=== PATIENT | female | born 1990 | race Caucasian/White ===

== ENCOUNTER → 2017-05-22 | Outpatient (CLI) | payer BC ==
[~2017-05-22] MED LIST: IBU600 MG PO; OMEGA-3 FISH1000 MG PO; PERCOCET 325 MG1 TA2 PO; PRENATAL FORMU1 EAC3 PO; ZANTAC 150MG T150 MG PO
== END ==
LOC: COL.RAD 12:30
DX: R22.1 Localized swelling, mass and lump, neck (principal)

== ENCOUNTER → 2017-06-05 | Outpatient (CLI) | payer BC | LOC: COL.RAD 08:13 | DX: R22.1 Localized swelling, mass and lump, neck (principal) | CPT/HCPCS: A9585 ==

== ENCOUNTER 2018-06-03 03:30 | Emergency (ER) | payer BC ==
[~2018-06-03] VITALS: Ht 160 cm; Wt 57.7 kg
[2018-06-03 03:32] VITALS: TEMP 98.5
[2018-06-03] MEDS ORDERED: ZOLOFT 100MG100 MG PO (03:37)
[2018-06-03] MEDS ORDERED: VITAMIN D 50,1.25 MG PO (03:38)
[2018-06-03 03:47] LABS: BASO # 0.1 (0.0-0.2); EOS # 0.1 (0.0-0.7); EOS % 1.9 % (0-4.0); GRAN # 4.2 (1.4-6.5); GRAN % 67.1 % (42.2-75.2); HEMATOCRIT 41.3 % (37.0-47.0); HEMOGLOBIN 14.1 g/dl (12.5-16.0); LYMPH # 1.4 (1.2-3.4); LYMPH % 22.7 % (20.0-51.0); MEAN CELL VOLUME 90 fl (80.0-100.0); MEAN CORPUSCULAR HEMOGLOBIN 31 pg (27.0-31.0); MEAN CORPUSCULAR HGB CONC 34 g/dl (33.0-37.0); MEAN PLATELET VOLUME 10.9 fl (7.4-10.4); MONO # 0.5 (0.1-0.6); MONO % 7.1 % (1.7-9.3); PLATELET COUNT 190 K/mm3 (130-400); RED BLOOD COUNT 4.58 M/mm3 (4.10-5.30); REDCELL DISTRIBUTION WIDTH-CV 11.9 % (11.5-14.5)
[2018-06-03 03:57] LABS: ALBUMIN 4.4 gm/dL (3.5-5.0); BILIRUBIN,TOTAL 0.4 mg/dL (0.0-1.0); CALCIUM 9.1 mg/dL (8.4-10.2); CREATININE, serum 0.9 mg/dL (0.52-1.25); POTASSIUM 4.1 mmol/L (3.4-5.0); TOTAL PROTEIN 7.3 gm/dL (6.4-8.2)
[2018-06-03 04:14] LABS: PROLACTIN 14.5 ng/mL (3.0-18.6)
[2018-06-03] MEDS ORDERED: KEPPRA 500MG500 MG PO (04:53)
[2018-06-03 05:42] LABS: COLLECTION METHOD CLEAN CATCH
[2018-06-03 05:48] LABS: MUCOUS Present /lpf; PH 6 (5-8); SQUAMOUS EPITHELIAL 0-2 /hpf; URINE APPEARANCE Clear; URINE BACTERIA None Seen /hpf; URINE BILIRUBIN Negative (NEGATIVE); URINE BLOOD Negative (NEGATIVE); URINE COLOR Yellow; URINE GLUCOSE Negative (NEGATIVE); URINE KETONE Negative (NEGATIVE); URINE LEUKOCYTE ESTERASE Negative (NEGATIVE); URINE NITRATE Negative (NEGATIVE); URINE PROTEIN(semi-quant) Negative (NEGATIVE); URINE RBC 0-2 /hpf; URINE UROBILINOGEN Negative (NEGATIVE)
[2018-06-03 05:56] LABS: TRICYCLIC ANTIDEPRESS URINE NEGATIVE
[2018-06-03 06:10] VITALS: BP 103/63; PULSE 66
== END 2018-06-03 06:15 | disposition home or self-care (01) ==
LOC: COL.ER 03:30
PROVIDERS: Emergency Medicine
DX: R56.9 Unspecified convulsions (principal)
CPT/HCPCS: J7030

== ENCOUNTER 2019-12-04 11:17 | Emergency (ER) | payer BC ==
[~2019-12-04] VITALS: Ht 162.6 cm; Wt 59.1 kg
[~2019-12-04 11:17] MED LIST changes: +KEPPRA 500MG500 MG PO; +VITAMIN D 50,1.25 MG PO; +ZOLOFT 100MG100 MG PO
[2019-12-04 11:21] VITALS: BP 120/58; TEMP 99
[2019-12-04 12:36] LABS: BASO # 0.1 (0.0-0.2); BASO % 0.5 % (0.0-2.0); EOS % 0.1 % (0-4.0); GRAN % 81.5 % (42.2-75.2); HEMATOCRIT 42.6 % (37.0-47.0); HEMOGLOBIN 14.6 g/dl (12.5-16.0); LYMPH # 1.3 (1.2-3.4); MEAN CELL VOLUME 91 fl (80.0-100.0); MEAN CORPUSCULAR HEMOGLOBIN 31 pg (27.0-31.0); MEAN CORPUSCULAR HGB CONC 34 g/dl (33.0-37.0); MEAN PLATELET VOLUME 10.8 fl (7.4-10.4); MONO # 0.6 (0.1-0.6); MONO % 5.5 % (1.7-9.3); PLATELET COUNT 216 K/mm3 (130-400); RED BLOOD COUNT 4.67 M/mm3 (4.10-5.30); REDCELL DISTRIBUTION WIDTH-CV 12.1 % (11.5-14.5)
[2019-12-04 12:53] LABS: ALANINE AMINOTRANSFERASE 31 U/L (4-34); ALBUMIN 4.6 gm/dL (3.5-5.0); ALKALINE PHOSPHATASE 76 U/L (50-136); ANION GAP 5 mmol/L (7-16); AST,SGOT 48 U/L (15-37); BILIRUBIN,TOTAL 0.5 mg/dL (0.0-1.0); BLOOD UREA NITROGEN 12 mg/dL (7-17); CALCIUM 9.7 mg/dL (8.4-10.2); CARBON DIOXIDE 30 mmol/L (22-30); CHLORIDE 101 mmol/L (98-107); CREATININE, serum 0.79 (0.52-1.25); GLUCOSE 104 mg/dL (74-106); POTASSIUM 4.6 mmol/L (3.4-5.0); SODIUM 136 mmol/L (137-145); TOTAL PROTEIN 7.5 gm/dL (6.4-8.2)
[2019-12-04 12:54] LABS: C-REACTIVE PROTEIN < 0.5 mg/dL (0.0-0.9)
[2019-12-04 13:06] LABS: PROLACTIN 6.2 ng/mL (3.0-18.6)
[2019-12-04 13:40] VITALS: PULSE 61
== END 2019-12-04 13:40 | disposition home or self-care (01) ==
LOC: COL.ER 11:17
PROVIDERS: Family Medicine
DX: R41.3 Other amnesia (principal); Z86.69 Personal history of other diseases of the nervous system and sense organs

== ENCOUNTER 2021-05-04 15:50 | Inpatient (IN) | payer BC ==
[2021-05-04] VITALS (24 sets, daily range): BP systolic 12–139; BP diastolic 56–83; PULSE 75–130; TEMP 97.8–98
[~2021-05-04] VITALS: Ht 162.6 cm; Wt 77.7 kg
--- NOTE | 2021-05-04 16:05 | NUR ---
1605- Pt arrives on unit ambulatory with complaints of contractions every 6-8mins today. Pt into gown. 1608- EFM x2 and TOCO on and tracing. O2 sat monitor on and tracing maternal HR. Assessment on and tracing. Pt denies LOF. +FM x2 per Pt.
[2021-05-04] MEDS ORDERED: LAMICTAL 100MG100 MG PO (16:24)
[2021-05-04] MEDS ORDERED: FOLIC ACID 11 MG/TA1 PO (16:24)
[2021-05-04] MEDS ORDERED: NATURAL IRON65 MG PO (16:26)
[2021-05-04] MEDS ORDERED: PROMETRIUM200 M1 VG (16:26)
[2021-05-04] MEDS ORDERED: PROCARDIA10 MG PO (16:27)
--- NOTE | 2021-05-04 18:45 | NUR ---
1845 SVE 5-6/80/-2 WITH BULGING BAG OF WATER. STATES CONTRACTIONS DO FEEL MORE INTENSE, ESPECIALLY IN THE BACK. DR MACHUCA NOTIFIED AND NEW ORDERS OBTAINED. ADMITTED INPATIENT.
--- NOTE | 2021-05-04 19:00 | NUR ---
1900 LR TO INT SITE. MGSO4 STARTED PER IV PUMP AT 2 GMS/ HR. PERMITS SIGNED. [facility] CALLED FOR EPID.
[2021-05-04 19:39] LABS: BASO % 0.1 % (0.0-2.0); EOS % 0.1 % (0-4.0); GRAN # 11.5 (1.4-6.5); GRAN % 80.4 % (42.2-75.2); HEMATOCRIT 34.4 % (37.0-47.0); HEMOGLOBIN 12.3 g/dl (12.5-16.0); LYMPH # 1.6 (1.2-3.4); LYMPH % 10.9 % (20.0-51.0); MEAN CELL VOLUME 96 fl (80.0-100.0); MEAN CORPUSCULAR HEMOGLOBIN 34 pg (27.0-31.0); MEAN CORPUSCULAR HGB CONC 36 g/dl (33.0-37.0); MEAN PLATELET VOLUME 11.4 fl (7.4-10.4); MONO % 7.2 % (1.7-9.3); PLATELET COUNT 192 K/mm3 (130-400); RED BLOOD COUNT 3.58 M/mm3 (4.10-5.30); REDCELL DISTRIBUTION WIDTH-CV 13.4 % (11.5-14.5)
--- NOTE | 2021-05-04 19:40 | NUR ---
1940 SITTING UP FOR EPID PLACEMENT. PHARMACY CLINICAL COORDINATOR HERE 1950 EPID DOSED. SEE [facility] RECORDS FOR MORE INFORMATION.
--- NOTE | 2021-05-04 20:45 | NUR ---
[address] ROLES WITH CORD FELT NEAR BABYS HEAD. NOT PROLAPSING. FHT'S 130'S ON BABY A WITH GOOD VARIABLITY AND ACCELS NOTED. SCALP ELECTRODE APPLIED PER DR ROLES. HOB ELEVATED TO HIGH FOWLERS.
--- NOTE | 2021-05-04 21:05 | NUR ---
210 DR MUELLERURE IN TO CHECK PT. STATES DOES NOT FEEL ANY CORD AT THIS TIME. CONTRACTIONS EVERY 5-6 MINUTES. MGSO4 DC'C 2112 PITOCIN STARTED AT 2MU/MIN PER PROTOCOL.
--- NOTE | 2021-05-04 21:30 | NUR ---
2130 C/O FEELING PRESSURE. SVE DONE WITH PULSATING CORD FELT BY BABY'S HEAD. DR MACHUCA AND GEOVANI ON UNIT AND NOTIFIED. DR OLIVO IN ROOM TO VISIT. POSSIBLE C/SECT DISCUSSED WITH PT.
--- NOTE | 2021-05-04 21:45 | NUR ---
2144 DR OLIVO IN ROOM. BABY A FHT'S 180 WITH MIN VARIABILITY. SVE WITH CORD FELT. FHT'S DECREASE TO 60'S AFTER SVE. 2147 C/SECT CALLED. PRESSURE APPLIED TO BABYS HEAD TO LIFT OFF OF CORD CONSTANT UNTIL BABY DELIVERED. 2148 TO OR PER BED.
--- NOTE | 2021-05-04 23:45 | NUR ---
2345 C/O INC PAIN. PERCOCET X1 PO GIVEN.
[2021-05-05] VITALS (10 sets, daily range): BP systolic 100–132; BP diastolic 56–74; PULSE 59–91; TEMP 97.8–98.4
--- NOTE | 2021-05-05 00:35 | NUR ---
0035 PERCOCET X1 PO GIVEN. PERICARE DONE. EPID CATH REMOVED. IV TO INT. BINDER ON.
--- NOTE | 2021-05-05 06:55 | NUR ---
0655- Pt ambulates to bathroom independently with RN standby assist. Montanez removed without difficulty. Pericare provided. Tennis ball sized clot passed while on toilet, no free-flow bleeding noted. Panty and peripad on. Pt ambulates to nursery to see babies, tolerates well.
[2021-05-05 07:15] LABS: HEMOGLOBIN 11.9 g/dl (12.5-16.0)
[2021-05-05 07:21] LABS: HEMATOCRIT 33.3 % (37.0-47.0)
--- NOTE | 2021-05-05 09:16 | NUR ---
Initial visit; Patient thanked Assistant Professor Of Economics for offering congratulations and prayer for her twin boy and girl. Assistant Professor Of Economics thanked mom for choosing our hospital. Mary states her experience here has been a wonderful one.
[2021-05-06 07:43] VITALS: BP 113/76; PULSE 78; TEMP 97.8
[2021-05-06 16:59] VITALS: BP 105/64; PULSE 71; TEMP 98.2
--- NOTE | 2021-05-06 18:20 | NUR ---
In nursery feeding twins at this time. Report recieved. POC reviewed.
[2021-05-06 20:30] VITALS: BP 123/67; PULSE 78; TEMP 97.5
[2021-05-07 08:30] VITALS: BP 117/74; PULSE 77; TEMP 97.6
[2021-05-07] MEDS ORDERED: PERCOCET 325 MG1 TA3 PO (09:19)
[2021-05-07] MEDS ORDERED: IBU800 M1 PO (09:19)
[2021-05-07 16:25] VITALS: BP 115/46; PULSE 80; TEMP 97.6
[2021-05-07 19:56] VITALS: BP 120/59; PULSE 70; TEMP 98.2
[2021-05-08 08:30] VITALS: BP 94/57; PULSE 81; TEMP 99.2
[2021-05-08 16:00] VITALS: BP 112/62; PULSE 70; TEMP 98.1
--- NOTE | 2021-05-08 16:30 | NUR ---
1630-Reviewed discharge instructions with patient. Denies questions verbalized understanding of border status. Instructed on newly prescribed medications sent to pharmacy.
== END 2021-05-08 16:50 | disposition home or self-care (01) | DRG 787 ==
LOC: LDRO 15:50 → OB 18:53 → LDR 18:53 → OB 23:35
PROVIDERS: Obstetrics & Gynecology; ADMIT Student in an Organized Health Care Education/Training Program
PROC: 10D00Z1 Extraction of Products of Conception, Low, Open Approach (ICD-10-PCS; principal; 2021-05-04)
DX: O60.14X2 Preterm labor third trimester with preterm delivery third trimester, fetus 2 (principal); O26.873 Cervical shortening, third trimester; O99.354 Diseases of the nervous system complicating childbirth; O60.14X1 Preterm labor third trimester with preterm delivery third trimester, fetus 1; O30.043 Twin pregnancy, dichorionic/diamniotic, third trimester; Z3A.34 34 weeks gestation of pregnancy; Z37.2 Twins, both liveborn; O99.344 Other mental disorders complicating childbirth; F41.9 Anxiety disorder, unspecified; F32.9 Major depressive disorder, single episode, unspecified; G40.909 Epilepsy, unspecified, not intractable, without status epilepticus; O76 Abnormality in fetal heart rate and rhythm complicating labor and delivery; O69.0XX0 Labor and delivery complicated by prolapse of cord, not applicable or unspecified
CPT/HCPCS: J0171; J0330; J0690; J1100; J1885; J2175; J2270; J2400; J2405; J2590; J2704; J3010; J3475; J7120

== ENCOUNTER 2024-07-04 00:46 | Emergency (ER) | payer OTHER ==
[~2024-07-04] VITALS: Ht 162.6 cm; Wt 59.1 kg
[~2024-07-04 00:46] MED LIST changes: +FOLIC ACID 11 MG/TA1 PO; +IBU800 M1 PO; +LAMICTAL 100MG100 MG PO; +NATURAL IRON65 MG PO; +PERCOCET 325 MG1 TA3 PO; +PROCARDIA10 MG PO; +PROMETRIUM200 M1 VG
[2024-07-04 00:56] VITALS: TEMP 97.6
[2024-07-04 01:22] LABS: BASO # 0.1 K/mm3 (0.0-0.2); BASO % 1.1 % (0.0-2.0); EOS # 0.2 K/mm3 (0.0-0.7); EOS % 2.2 % (0.0-4.0); GRAN # 3.8 K/mm3 (1.4-6.5); GRAN % 50.5 % (42.2-75.2); HEMATOCRIT 39.5 % (37.0-47.0); HEMOGLOBIN 13.8 g/dl (12.5-16.0); LYMPH # 2.9 K/mm3 (1.2-3.4); LYMPH % 37.6 % (20.0-51.0); MEAN CELL VOLUME 91 fl (80.0-100.0); MEAN CORPUSCULAR HEMOGLOBIN 32 pg (27-31); MEAN CORPUSCULAR HGB CONC 35 g/dl (33.0-37.0); MEAN PLATELET VOLUME 9.8 fl (7.4-10.4); MONO # 0.7 K/mm3 (0.1-0.6); MONO % 8.5 % (1.7-9.3); PLATELET COUNT 225 K/mm3 (130-400); RED BLOOD COUNT 4.36 M/mm3 (4.10-5.30); REDCELL DISTRIBUTION WIDTH-CV 11.5 % (11.5-14.5)
[2024-07-04 01:39] LABS: ALBUMIN 4.2 g/dL (3.5-5.0); BILIRUBIN,TOTAL 0.3 mg/dL (0.2-1.2); CREATININE, serum 0.95 mg/dL (0.57-1.11); POTASSIUM 4.2 mEq/L (3.5-4.5); TOTAL PROTEIN 6.5 g/dl (6.2-8.1)
[2024-07-04 01:52] LABS: COLLECTION METHOD CLEAN CATCH
[2024-07-04 02:00] LABS: URINE APPEARANCE TURBID (CLEAR/HAZY); URINE BLOOD NEGATIVE (NEGATIVE); URINE COLOR YELLOW (YELLOW); URINE GLUCOSE NEGATIVE (NEGATIVE); URINE KETONE NEGATIVE (NEGATIVE); URINE NITRATE NEGATIVE (NEGATIVE); URINE PROTEIN(semi-quant) TRACE (NEGATIVE); URINE UROBILINOGEN 0.2 E.U/dL (0.2-1.0)
[2024-07-04] MEDS ORDERED: Ketorolac 30 MG/ML VIAL IV ONE (02:00)
[2024-07-04] MEDS ORDERED: Dextrose (Glucose) 15 GM (4 x 3.75 GM) Chewable TABLET PACK PO ONE (02:00)
[2024-07-04] MEDS ORDERED: Iohexol 300 - 100 ML VIAL IV ONE (02:01)
[2024-07-04] MEDS ORDERED: NS 50 ML IV ONE (02:02)
[2024-07-04] MEDS ORDERED: cefTRIAXone 1 G in Water For Injection,Sterile 10 ML IV ONE (02:30)
[2024-07-04] MEDS ORDERED: CEFTIN500 MG PO (02:33)
[2024-07-04] MEDS ORDERED: DIFLUCAN150 MG PO (02:33)
[2024-07-04 03:00] VITALS: BP 101/61; PULSE 68
[2024-07-04] MEDS ORDERED: droPERidol 2.5 MG/ML 2 ML VIAL IV ONE (03:00)
== END 2024-07-04 03:05 | disposition home or self-care (01) ==
LOC: COL.ER 00:46
PROVIDERS: Nurse Practitioner Primary Care
DX: N39.0 Urinary tract infection, site not specified (principal); B37.9 Candidiasis, unspecified; R82.4 Acetonuria
CPT/HCPCS: J0696; J1790; J1885; Q9967